=== PATIENT | male | born 1985 | race Caucasian/White ===

== ENCOUNTER 2016-07-04 15:10 | Emergency (ER) | payer OTHER, BC ==
[~2016-07-04] VITALS: Ht 170.2 cm; Wt 68.0 kg
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
[2016-07-04] MEDS ORDERED: CATHETER FLUSH 10 ML SYR IV PRN (16:00)
[2016-07-04] MEDS ORDERED: NS 100 ML (IVPB) BAG IV ONE (16:00)
[2016-07-04] MEDS ORDERED: IOHEXOL 350 MG/ML 100 ML (OMNIPAQUE 350) VIAL IV ONE (16:00)
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
[2016-07-04 17:22] VITALS: BP 128/76
--- OUTSIDE RECORDS SUMMARY | 2016-08-07 22:20 | XMS REPORT ---
Author CYNTHIA Duran Organization [employer] Address Unknown Phone Unavailable Care Team Providers Care Car Tracer Name Role Phone CYNTHIA MCCORMICK CP Unavailable Allergies, Adverse Reactions, Alerts Substance Reaction Event Type N.K.D.A. Info Not Available Non Drug Allergy Problems Problem Type Condition Code Onset Dates Condition Status Problem Unspecified otalgia 388.70 Active Problem Pain in joint, shoulder region 719.41 Active Problem Acute mucoid otitis media 381.02 Active Problem Dysfunction of Eustachian tube 381.81 Active Assessment Sinusitis J32.9 Active Medications Medication Code System Code Instructions Start Date End Date Status Dosage Mucinex [facility] [place] [address]-06 600 MG Orally every 12 hrs 1 tablet as needed PredniSONE NDC 0 10 mg Orally 2 times a day July 17, 2015 July 22, 2015 1 tablet Augmentin [facility] [place] [address]-41 875-125 MG Orally every 12 hrs July 17, 2015 July 27, 2015 1 tablet Procedures Procedure Coding System Code Date Office Visit, Est Pt., Level 3 CPT-4 10568 July 17, 2015 Vital Signs Date/Time: July 17, 2015 Temperature 99.0 F Weight 154.2 lbs Height 66 in BMI 24.89 Index Blood Pressure Diastolic 68 mmHg Blood Pressure Systolic 118 mmHg Cardiac Monitoring Heart Rate 80 bpm Results No Known Results Summary Purpose [employer] Submission
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
--- OUTSIDE RECORDS SUMMARY | 2016-08-07 22:20 | XMS REPORT ---
Author Author NORBERTO CANNON Organization [employer] Address Unknown Phone Unavailable Care Team Providers Care Rn Acute Name Role Phone NORBERTO CANNON CP Unavailable Allergies, Adverse Reactions, Alerts Substance Reaction Event Type N.K.D.A. Info Not Available Non Drug Allergy Problems Problem Type Condition Code Onset Dates Condition Status Problem Unspecified otalgia 388.70 Active Problem Pain in joint, shoulder region 719.41 Active Problem Acute mucoid otitis media 381.02 Active Assessment Acute midline low back pain without sciatica M54.5 Active Problem Dysfunction of Eustachian tube 381.81 Active Assessment Acute midline thoracic back pain M54.6 Active Medications Medication Code System Code Instructions Start Date End Date Status Dosage Mucinex [facility] [address]-53 600 MG Orally every 12 hrs 1 tablet as needed Cyclobenzaprine HCl [facility] [address]-67 10 mg Orally Once a day at bedtime Nov 08, 2015 1 [place] [address]-39 10 mg Orally Once a day Nov 08, 2015 4 tabs x 5 days, 3 tabs x 5 days, 2 tabs x 5 days, then 1 tab x [address] [place] [address]-69 800 MG Orally Three times a day Nov 08, 2015 Dec 08, 2015 1 tablet ibuprofen NDC 0 200 mg Oral every 4-6 hours as needed 4 [place] [address]-80 20 mg Orally Once a day Nov 08, 2015 1 capsules Procedures Procedure Coding System Code Date Office Visit, Est Pt., Level 3 CPT-4 32308 Nov 08, 2015 Vital Signs Date/Time: Nov 08, 2015 Cardiac Monitoring Heart Rate 94 bpm Weight 156.7 lbs Height 66 in BMI 25.29 Index Blood Pressure Diastolic 83 mmHg Blood Pressure Systolic 127 mmHg Results No Known Results Summary Purpose [employer] Submission
--- OUTSIDE RECORDS SUMMARY | 2016-08-07 22:21 | XMS REPORT ---
Author Author NORBERTO CANNON Organization [facility] Address [address] [place] [address] Care Team Providers Care Photolithographer Name Role Phone CANNONNORBERTO Granger Unavailable PROBLEMS Type Condition ICD9-CM Code POC87-SJ Code Onset Dates Condition Status SNOMED Code Problem Dysfunction of Eustachian tube 381.81 Active 85893911 Problem Unspecified otalgia 388.70 Active 72573066 Problem Pain in joint, shoulder region 719.41 Active 016208425 Assessment Alcohol abuse F10.10 Nov, Active 01310161 Assessment Routine health maintenance Z00.00 Nov, Active 753502847 Problem Routine health maintenance Z00.00 Active 796889528 Problem Tobacco abuse Z72.0 Active 072178610 Problem Other chronic pain G89.29 Active 31888883 Problem Acute mucoid otitis media 381.02 Active 13959635 Problem Tobacco abuse counseling Z71.6 Active 001266071 Problem Lumbago with sciatica, unspecified side M54.40 Active 708661371 ALLERGIES Substance Reaction Event Type Date Status N.K.D.A. Unknown Non Drug Allergy Nov, Unknown SOCIAL HISTORY No smoking Hx information available PLAN OF CARE VITAL SIGNS Height 66 in 2015-12-06 Weight 159.4 lbs 2015-12-06 Heart Rate 82 bpm 2015-12-06 Respiratory Rate 20 2015-12-06 BMI 25.73 kg/m2 2015-12-06 Blood pressure systolic 122 mmHg 2015-12-06 Blood pressure diastolic 80 mmHg 2015-12-06 MEDICATIONS Medication Instructions Dosage Frequency Start Date End Date Duration Status Cyclobenzaprine HCl 10 mg Orally Once a day at bedtime 1 tablet Oct, Active Ibuprofen 800 MG Orally Three times a day 1 tablet 8h Oct,Nov 30 day(s) Active RESULTS No Results PROCEDURES Procedure Date Ordered Related Diagnosis Body Site Office Visit, Est Pt., Level 3 Dec 06, 2015 IMMUNIZATIONS No Known Immunizations
== END 2016-07-04 17:22 | disposition home or self-care (01) ==
LOC: EDUNIT# 15:10 → ER 15:11
DX: S29.9XXA Unspecified injury of thorax, initial encounter (principal); S79.912A Unspecified injury of left hip, initial encounter; R91.8 Other nonspecific abnormal finding of lung field; M47.812 Spondylosis without myelopathy or radiculopathy, cervical region; F17.210 Nicotine dependence, cigarettes, uncomplicated; V44.5XXA Car driver injured in collision with heavy transport vehicle or bus in traffic accident, initial encounter; Y92.410 Unspecified street and highway as the place of occurrence of the external cause; Y99.8 Other external cause status
CPT/HCPCS: 70450; 71260; 72125; 74177

== ENCOUNTER 2016-07-10 12:07 | Emergency (ER) | payer OTHER, BC ==
[~2016-07-10] VITALS: Ht 170.2 cm; Wt 68.0 kg
[2016-07-10] MEDS ORDERED: IBUPROFEN 800 MG (MOTRIN) TAB PO STA (13:05)
[2016-07-10] MEDS ORDERED: CYCLOBENZAPRINE 10 MG (FLEXERIL) TAB PO STA (13:05)
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
[2016-07-10] MEDS ORDERED: CYCL10TA9 PO (13:51)
[2016-07-10 14:00] VITALS: BP 124/82
== END 2016-07-10 14:00 | disposition home or self-care (01) ==
LOC: EDUNIT# 12:07 → ER 12:10
DX: S16.1XXA Strain of muscle, fascia and tendon at neck level, initial encounter (principal); M50.30 Other cervical disc degeneration, unspecified cervical region; F17.210 Nicotine dependence, cigarettes, uncomplicated; Z79.899 Other long term (current) drug therapy; X58.XXXA Exposure to other specified factors, initial encounter; Y99.8 Other external cause status
CPT/HCPCS: 99281

== ENCOUNTER 2016-09-25 13:00 | Outpatient (RCR) | payer BC, OTHER ==
[~2016-09-25 13:00] MED LIST: CYCL10TA9 PO
== END 2016-10-28 15:37 | disposition home or self-care (01) ==
PROVIDERS: ATTEND Nurse Practitioner Family
DX: M50.30 Other cervical disc degeneration, unspecified cervical region (principal); M54.40 Lumbago with sciatica, unspecified side; F07.81 Postconcussional syndrome